=== PATIENT | female | born 1970 | race Caucasian/White ===

== ENCOUNTER 2018-10-02 22:22 | Inpatient (IN) | payer MEDICAID ==
[~2018-10-02] VITALS: Ht 167.6 cm; Wt 77.1 kg
[2018-10-02] MEDS ORDERED: MORPHINE SULFATE 4 MG/ML CPJ (NOT FOR IM USE) IV STA (23:17)
[2018-10-02] MEDS ORDERED: NITROGLYCERIN 0.4MG TABLET SL SL PRN (23:30)
[2018-10-03 00:27] LABS: BASOPHILS % 1.1 % (0.0-2.0); EOSINOPHILS % 1.9 % (0.0-5.0); HEMATOCRIT. 38.6 % (36.0-48.0); HEMOGLOBIN. 12.8 g/dL (12.0-16.0); LYMPHOCYTES % 41.7 % (20.0-50.0); MEAN CORPUSCULAR HEMOGLOBIN 28.7 pg (28.0-32.0); MEAN CORPUSCULAR VOLUME 86.9 fL (81.0-99.0); MONOCYTES % 8.2 % (2.0-8.0); NEUTROPHILS % 47.1 % (40.0-76.0); PLATELET 236 x1000/uL (130-400); RED BLOOD CELL COUNT 4.44 mill/uL (4.2-5.4); RED CELL DISTRIBUTION WIDTH 13.7 % (11.6-14.6)
[2018-10-03 00:33] LABS: CHLORIDE 110 mEq/L (98-107)
[2018-10-03] MEDS ORDERED: MAGNESIUM/ALUMINUM HYDROXIDE/SIMETHICONE 30ML UDC PO PRN (03:30)
[2018-10-03] MEDS ORDERED: CLONIDINE 0.1MG TABLET PO PRN (03:30)
[2018-10-03] MEDS ORDERED: ACETAMINOPHEN 325MG TABLET PO PRN (03:30)
[2018-10-03] MEDS ORDERED: TEMAZEPAM 15MG CAPSULE PO PRN (03:30)
[2018-10-03] MEDS ORDERED: MAGNESIUM HYDROXIDE 400MG/5ML 30ML UDC PO PRN (03:30)
[2018-10-03] MEDS ORDERED: MORPHINE SULFATE 4 MG/ML CPJ (NOT FOR IM USE) IV PRN (03:30)
[2018-10-03] MEDS ORDERED: DIPHENHYDRAMINE 50MG/ML VIAL IV PRN (03:30)
[2018-10-03] MEDS ORDERED: ONDANSETRON HCL 4MG/2ML INJ IV PRN (03:30)
[2018-10-03] MEDS ORDERED: GUAIFENESIN 200MG/10ML SUGAR FREE UDC PO PRN (03:30)
[2018-10-03] MEDS ORDERED: ENOXAPARIN 80MG/0.8ML SYR SUBCUT SCH (04:00)
[2018-10-03 06:41] LABS: LDL CHOLESTEROL 111 mg/dL (5-100)
[2018-10-03 06:43] LABS: HDL CHOLESTEROL 52 mg/dL (40-59)
[2018-10-03] MEDS ORDERED: ASPIRIN 325MG EC TABLET PO SCH (09:00)
[2018-10-03 15:00] VITALS: BP 154/87
[2018-10-03 16:00] VITALS: BP 154/87
[2018-10-03] MEDS ORDERED: REGADENOSON 0.4 MG/5 ML IV SCH (16:00)
[2018-10-03] MEDS: ASPIRIN 81MG EC TABLET PO SCH (16:58)
[2018-10-03] MEDS: LOSARTAN POTASSIUM 25 MG TABLET PO SCH (16:58)
[2018-10-03] MEDS: ENOXAPARIN 40MG/0.4ML SYR SUBCUT SCH (16:59)
[2018-10-03] MEDS ORDERED: LISI-604 MT (17:28)
[2018-10-03 20:00] VITALS: BP 156/88
[2018-10-03 21:40] VITALS: BP 156/88
[2018-10-03] MEDS: SODIUM CHLORIDE 0.9% INJ 3ML FLUSH IVF SCH (21:55)
[2018-10-04] VITALS: BP 129/74
[2018-10-04 04:00] VITALS: BP 129/69
[2018-10-04 06:21] LABS: UCG SCREEN NEGATIVE
[2018-10-04] MEDS: SODIUM CHLORIDE 0.9% INJ 3ML FLUSH IVF SCH ×2 (06:25→14:22)
[2018-10-04 06:35] LABS: *AMPHETAMINES SCREEN URINE NEGATIVE (NEGATIVE); *BARBITURATES SCREEN URINE NEGATIVE (NEGATIVE); *BENZODIAZEPINES SCREEN URINE NEGATIVE (NEGATIVE); *COCAINE SCREEN URINE NEGATIVE (NEGATIVE); CANNABINOID URINE SCREEN NEGATIVE (NEGATIVE); METHADONE URINE SCREEN NEGATIVE (NEGATIVE); OPIATES URINE SCREEN PRESUMTIVE POSITIVE (NEGATIVE); PHENCYCLIDINE URINE SCREEN NEGATIVE (NEGATIVE)
[2018-10-04 06:46] LABS: BASOPHILS % 1.4 % (0.0-2.0); EOSINOPHILS % 2.8 % (0.0-5.0); HEMATOCRIT. 39.9 % (36.0-48.0); HEMOGLOBIN. 13.4 g/dL (12.0-16.0); LYMPHOCYTES % 46.1 % (20.0-50.0); MEAN CORPUSCULAR HEMOGLOBIN 28.9 pg (28.0-32.0); MEAN PLATELET VOLUME 9.2 fl (7.4-10.4); MONOCYTES % 9.4 % (2.0-8.0); NEUTROPHILS % 40.3 % (40.0-76.0); PLATELET 232 x1000/uL (130-400); RED BLOOD CELL COUNT 4.64 mill/uL (4.2-5.4); RED CELL DISTRIBUTION WIDTH 13.4 % (11.6-14.6)
[2018-10-04 06:50] LABS: CHLORIDE 107 mEq/L (98-107)
[2018-10-04 07:00] LABS: CREATINE KINASE 39 IU/L (26-192)
[2018-10-04 07:03] LABS: CREATINE KINASE MB FRACTION < 1.0 ng/mL (0.5-3.6)
[2018-10-04 08:00] VITALS: BP_SYST 123; BP_SYST 125; BP_DIAS 75; BP_DIAS 76
[2018-10-04] MEDS ORDERED: REGADENOSON 0.4 MG/5 ML IV ONE (09:15)
[2018-10-04] MEDS: ASPIRIN 81MG EC TABLET PO SCH (10:42)
[2018-10-04] MEDS: LOSARTAN POTASSIUM 25 MG TABLET PO SCH (10:42)
[2018-10-04 12:00] VITALS: BP 144/84
[2018-10-04 15:37] VITALS: BP 144/84
[2018-10-04] MEDS: ENOXAPARIN 40MG/0.4ML SYR SUBCUT SCH (15:53)
== END 2018-10-04 16:30 | disposition home or self-care (01) | DRG 203 ==
LOC: ER 22:22 → 5WST 10-03 02:44 → EDBEDREQDT 10-03 04:34 → EDBEDREQ 10-03 04:34 → EDBEDREQTM 10-03 04:34 → ENRESERV 10-03 13:50
PROVIDERS: ADMIT Internal Medicine; ATTEND Internal Medicine
DX: R07.89 Other chest pain (principal); E87.8 Other disorders of electrolyte and fluid balance, not elsewhere classified; E78.00 Pure hypercholesterolemia, unspecified; I10 Essential (primary) hypertension
CPT/HCPCS: 36415; 71045; 78452; 80061; 80305; 81025; 82550; 82553; 83036; 83735; 83880; 84443; 84484; 93005; 93017; 93306; 93970; 96374; 99285; A9500; J1650; J2270; J2785